=== PATIENT | male | born 1975 | race American Indian/Alaskan Native ===

== ENCOUNTER 2021-02-15 10:18 | Emergency (ER) | payer SELFPAY ==
[2021-02-15 10:22] VITALS: BP 121/71
[2021-02-15] MEDS ORDERED: HYOSCYAMINE SUBL 0.125 MG TAB SL ONE (10:42)
[2021-02-15] MEDS ORDERED: ONDANSETRON 4 MG/2 ML INJ IV ONE (10:42)
[2021-02-15] MEDS ORDERED: SODIUM CHLORIDE 0.9% 1000 ML 1,000 ML IV ONE (10:42)
--- NOTE | 2021-02-15 10:45 | Emergency Department Report ---
ED Abdominal Pain HPI - General Chief Complaint: Nausea/Vomiting/Diarrhea Stated Complaint: NAUSEA AND VOMITING PUI?: No Time Seen by Provider: 02/15/21 10:28 Source: patient Mode of arrival: Ambulatory Limitations: No Limitations - History of Present Illness Initial Comments: 45-year-old male who denies any significant past medical history presents to the ER today with complaints of nausea and vomiting. Patient states that his symptoms started yesterday. He states that he has vomited over 8 times. He states that his emesis is mainly food or liquid. He states that every time he tries to eat or drink it comes right back out. He also reports associated lower abdominal pain, dysuria, urinary odor and chills. He denies any diarrhea or constipation. The last time he pooped was this morning. He denies any melena or hematochezia. Patient states that he had similar symptoms in the past. He states that he was seen by provider in [place] and was told that his symptoms were related to gastroenteritis. He was instructed to follow-up with GI but he never did. Patient states that he has been here in [place] for 2 months, but he actually lives in [place]. He is status post appendectomy but no other abdominal surgeries. He states that he smokes marijuana, and drinks a shot of liquor a day. MD Complaint: abdominal pain, other (nausea and vomiting) -: days(s) (1) - Related Data Previous Rx's Medication Instructions Recorded Last Taken Type Hyoscyamine Subl [Levsin Sl 0.125 0.125 mg SL Q6HR PRN #20 tab 02/15/21 Unknown Rx TAB] Ondansetron [Zofran Odt] 4 mg PO Q8HR #15 tab.rapdis 02/15/21 Unknown Rx Allergies Allergy/AdvReac Type Severity Reaction Status Date / Time No Known Allergies Allergy Unverified 02/15/21 10:20 ED Review of Systems ROS: Stated complaint: NAUSEA AND VOMITING Other details as noted in HPI Comment: All other systems reviewed and negative Constitutional: chills Gastrointestinal: abdominal pain, nausea, vomiting Genitourinary: dysuria, other (Urinary odor). denies: discharge ED Past Medical Hx - Medications Home Medications: Home Medications Medication Instructions Recorded Confirmed Last Taken Type Hyoscyamine Subl [Levsin Sl 0.125 0.125 mg SL Q6HR PRN #20 tab 02/15/21 Unknown Rx TAB] Ondansetron [Zofran Odt] 4 mg PO Q8HR #15 tab.rapdis 02/15/21 Unknown Rx ED Physical Exam - General Limitations: No Limitations General appearance: alert, in no apparent distress - Head Head exam: Present: atraumatic, normocephalic, normal inspection - Eye Eye exam: Present: normal appearance, PERRL, EOMI Pupils: Present: normal accommodation - ENT ENT exam: Present: mucous membranes dry - Neck Neck exam: Present: normal inspection, full ROM - Respiratory Respiratory exam: Present: normal lung sounds bilaterally. Absent: respiratory distress, wheezes, rales, rhonchi, stridor - Cardiovascular Cardiovascular Exam: Present: regular rate, normal rhythm, normal heart sounds - GI/Abdominal GI/Abdominal exam: Present: soft. Absent: distended, tenderness, guarding, rebound - Neurological Exam Neurological exam: Present: alert, oriented X3, CN II-XII intact, normal gait - Psychiatric Psychiatric exam: Present: normal affect, normal mood - Skin Skin exam: Present: intact ED Course Vital Signs 02/15/21 10:21 Temperature 98.5 F Pulse Rate 61 Respiratory 19 Rate Blood Pressure 121/71 O2 Sat by Pulse 99 Oximetry ED Medical Decision Making - Lab Data Result diagrams: 02/15/21 10:42 02/15/21 10:42 - Medical Decision Making Patient states that he feels much better after IV fluids and meds. All labs reviewed and stable. Patient not toxic or ill appearing. He is neuro intact with normal gait. He has non surgical abd exam. He is not any distress. Discussed lab result with patient. He will be d/c home with rx for meds to help his symptoms. He will be given referral to GI. Pt expressed understanding of instructions and agreed with plan. Pt stable at time of d/c - Differential Diagnosis gastroenteritis, electrolyte abnormality, dehydration, pancreatitis Critical care attestation.: If time is entered above; I have spent that time in minutes in the direct care of this critically ill patient, excluding procedure time. ED Disposition Clinical Impression: Nausea and vomiting Disposition: 01 HOME / SELF CARE / HOMELESS Is pt being admited?: No Does the pt Need Aspirin: No Condition: Stable Instructions: Nausea and Vomiting, Adult, [id number] Additional Instructions: Recommend that you take the Zofran and the Levsin as prescribed to help your symptoms. Drink lots of water. Follow-up with the GI specialist listed on your discharge instructions. You can also follow-up with the PCP listed in your discharge instructions. Return to the ER if your symptoms changes or worsens in any way. Prescriptions: Hyoscyamine Subl [Levsin Sl 0.125 TAB] 0.125 mg SL Q6HR PRN #20 tab PRN Reason: Abdominal cramps Ondansetron [Zofran Odt] 4 mg PO Q8HR #15 tab.castrodis Referrals: CARTER DE LA CRUZ MD [Staff Physician] - 3-5 Days [facility] [Provider Group] - 3-5 Days Time of Disposition: 12:27
[2021-02-15 11:35] LABS: Basophils # (Auto) 0.1 K/mm3 (0.0-0.1); Basophils % (Auto) 0.8 % (0.0-1.8); Eosinophils % (Auto) 0.1 % (0.0-4.3); Lymphocytes # (Auto) 1.8 K/mm3 (1.2-5.4); Lymphocytes % (Auto) 22.9 % (13.4-35.0); Mean Corpuscular HGB Conc 30 % (32-34); Mean Corpuscular Volume 74 fl (84-94); Monocytes # (Auto) 0.5 K/mm3 (0.0-0.8); Monocytes % (Auto) 6.6 % (0.0-7.3); Platelet Count 239 K/mm3 (140-440); Red Blood Count 6.03 M/mm3 (3.65-5.03); Red Cell Distribution Width 15.3 % (13.2-15.2)
[2021-02-15 11:51] LABS: Alanine Aminotransferase 19 units/L (7-56); BUN/Creatinine Ratio 15; Blood Urea Nitrogen 12 mg/dL (9-20); Calcium 9.8 mg/dL (8.4-10.2); Hemolysis Index 49
[2021-02-15 11:54] LABS: Bilirubin,Urine SM (Negative); Blood,Urine NEG (Negative); Color,Urine Amber (Yellow); Mucus,Urine 3+ /HPF; Urobilinogen,Urine < 2.0 mg/dL (<2.0)
[2021-02-15 12:01] LABS: Hematocrit 44.7 % (35.5-45.6); Hemoglobin 13.5 gm/dl (11.8-15.2)
[2021-02-15 12:17] LABS: Ictotest,Urine Negative (Negative)
== END 2021-02-15 12:35 | disposition home or self-care (01) ==
LOC: ED 10:18
DX: R11.2 Nausea with vomiting, unspecified (principal)
CPT/HCPCS: 36415; 80053; 81001; 83690; 83735; 85025; 96361; 96374; 99283; J2405; J7030; Q0162